=== PATIENT | female | born 1930 | race Caucasian/White ===

== ENCOUNTER 2017-10-05 08:07 | Emergency (ER) | payer MEDICARE, OTHER ==
[2017-10-05] MEDS ORDERED: Acetaminophen/HYDROcodone 325-5 MG Tab PO ONE (08:34)
--- NOTE | 2017-10-05 08:37 | EDM.PDOC ---
ED HPI GENERAL MEDICAL PROBLEM - General Stated Complaint: FELL- HURT RIBS Time Seen by Provider: 10/05/17 08:28 - History of Present Illness INITIAL COMMENTS - FREE TEXT/NARRATIVE: HISTORY AND PHYSICAL: History of present illness: The patient is an 87-year-old female who follows at [facility] with Dr. Sanabira and has a history of hypertension hypercholesterolemia breast cancer with a left mastectomy in remission [id number] diabetes and who presents after having a simple fall in her kitchen on night, 3-1/2 days ago. She has had persistent pain where she impacted the right side of her ribs on a small kitchen stool. She has had no abdominal pain no midline back pain and she did not hit her head or pass out. She has no head neck or midline back pain. She has no extremity complaints but she does say that when she takes a deep breath it is painful in her ribs. She has used [id number] Aleve but the pain is still persistent. She has no flank pain per se and no urinary complaints. She says that she does have a history of gait instability and she has fallen before and she does not think this is new or different. She is not dizzy or lightheaded prior to the fall. She tells me that she just lost her footing and this is happened before. When she fell she did impact her right ribs on the small kitchen stool. Review of systems: As per history of present illness and below otherwise all systems reviewed and negative. Past medical history: As per history of present illness and as reviewed below otherwise noncontributory. Surgical history: As per history of present illness and as reviewed below otherwise noncontributory. Social history: No reported history of drug or alcohol abuse. Family history: As per history of present illness and as reviewed below otherwise noncontributory. Physical exam: Gen.: Well-developed well-nourished thin female who is nontoxic and speaking clearly in the ED and moving easily. Vital signs were noted by me HEENT: Atraumatic, normocephalic, pupils reactive, negative for conjunctival pallor or scleral icterus, mucous membranes moist, throat clear, neck supple, nontender, trachea midline. There are no midline step-offs tenderness defects of the cervical spine Lungs: Clear to auscultation, breath sounds equal bilaterally, chest wall with mild tenderness at right lateral ribs without defects ecchymosis deformity or crepitus. No wheezing or stridor is appreciated Heart: S1S2, regular rate and rhythm no overt murmurs are appreciated but heart sounds are very distant for me Abdomen: Soft, nondistended, nontender. Negative for masses or hepatosplenomegaly. Negative for costovertebral tenderness. Pelvis: Stable nontender. No lateral hip tenderness Genitourinary: Deferred. Rectal: Deferred. Extremities: Atraumatic, negative for cords or calf pain. Neurovascular unremarkable. Full range of motion without defects or deficits Neuro: Awake, alert, oriented. Cranial nerves II through XII unremarkable. Cerebellum unremarkable. Motor and sensory unremarkable throughout. Exam nonfocal. Back: There are no midline step-offs tenderness defects of the thoracic or lumbar spine and no soft tissue trauma is visualized on the back Diagnostics: EKG CBC CMP UA right ribs with chest x-ray Therapeutics: Dickinson incentive spirometer gentle IV fluids Patient and son at bedside are aware of sodium of 126 and x-ray findings of nondisplaced fractures of right ribs 9 through 11. There is no evidence of any lung injury and the patient sustained this injury 3-1/2 days ago and says that the Dickinson is significantly helping. I do not think that she needs to be admitted to the hospital at this point and she would prefer not to be admitted but we will give her an incentive spirometer and teaching with respect to that and after some IV fluids I will discuss this case with her provider Dr. Sanabria for close follow-up of her sodium and care plan and pain management. 1040: I was able to connect with Dr. Sanabria was aware of the patient's presentation of the ED and the testing results. He tells me that she had a sodium level performed in July, approximately 2 months ago, that was normal at 136. He agrees with the care plan and can see the patient in his clinic on Thursday morning at 7:45 AM to be reevaluated for pain control and to have a repeat labs done for her sodium. The patient and son at bedside are also aware of this plan and are agreeable. I stressed to the patient and to the son to return to the ER for any problems whatsoever. Impression: Right rib nondisplaced fractures #9-11 status post fall subacute; hyponatremia stable etiology unclear Definitive disposition and diagnosis as appropriate pending reevaluation and review of above. right rib Pain Score (Numeric/FACES): 5 - Related Data Allergies Allergy/AdvReac Type Severity Reaction Status Date / Time Iodinated Contrast- Oral and Allergy Cannot Verified 12/07/13 15:29 IV Dye Remember [Iodinated Contrast Media - IV Dye] propoxyphene HCl Allergy Cannot Verified 12/07/13 15:29 [From Darvon] Remember Home Meds: Home Meds Bisoprolol/Hydrochlorothiazide [Bisoprolol/HCTZ 5-6.25 MG] 6.25 mg PO DAILY 01/15 [History] Lisinopril 40 mg PO DAILY 10/05/17 [History] Potassium Bicarbonate/Cit Ac [Potassium 25 Meq Tablet Eff] 25 meq PO DAILY 10/05 [History] amLODIPine [Norvasc] 5 mg PO DAILY 10/05/17 [History] atorvaSTATin [Lipitor] 40 mg PO DAILY 10/05/17 [History] metFORMIN [Glucophage] 1 mg PO DAILY 10/05/17 [History] ED ROS GENERAL - Review of Systems Review Of Systems: ROS reveals no pertinent complaints other than HPI. ED EXAM, GENERAL - Physical Exam Exam: See Below (See dictation) Course - Vital Signs Last Recorded V/S: Last Vital Signs Temp 36.9 C 10/05/17 08:43 Pulse 55 L 10/05/17 10:21 Resp 17 10/05/17 10:21 BP 148/64 H 10/05/17 10:21 Pulse Ox 95 10/05/17 10:21 - Orders/Labs/Meds Orders: Active Orders 24 hr Category Date Time Status Communication Order [RC] STAT Care 10/05/17 09:57 Active EKG Documentation Completion [RC] STAT Care 10/05/17 08:34 Active Sodium Chloride 0.9% [Normal Saline] 500 ml Med 10/05/17 09:45 Active IV STAT Sodium Chloride 0.9% [Saline Flush] Med 10/05/17 09:43 Active 10 ml FLUSH ASDIRECTED PRN Sodium Chloride 0.9% [Saline Flush] Med 10/05/17 09:43 Active 2.5 ml FLUSH ASDIRECTED PRN Saline Lock Insert [OM.PC] Stat Oth 10/05/17 09:43 Ordered Medication Orders Sodium Chloride (Normal Saline) 500 mls @ 999 mls/hr IV STAT CRISTIAN Last Admin: 10/05/17 10:27 Dose: 999 mls/hr Sodium Chloride (Saline Flush) 10 ml FLUSH ASDIRECTED PRN PRN Reason: Keep Vein Open Sodium Chloride (Saline Flush) 2.5 ml FLUSH ASDIRECTED PRN PRN Reason: Keep Vein Open Labs: Laboratory Tests 10/05/17 10/05/17 10/05/17 Range/Units 08:58 08:58 10:13 WBC 10.67 (4.0-11.0) K/uL RBC 4.72 (4.30-5.90) M/uL Hgb 14.2 (12.0-16.0) g/dL Hct 41.3 (36.0-46.0) % MCV 87.5 (80.0-98.0) fL MCH 30.1 (27.0-32.0) pg MCHC 34.4 (31.0-37.0) g/dL RDW Std Deviation 39.4 (28.0-62.0) fl RDW Coeff of Tariq 12 (11.0-15.0) % Plt Count 416 H (150-400) K/uL MPV 9.10 (7.40-12.00) fL Neut % (Auto) 71.9 (48.0-80.0) % Lymph % (Auto) 17.4 (16.0-40.0) % [place] % (Auto) 9.5 (0.0-15.0) % Eos % (Auto) 1.0 (0.0-7.0) % Baso % (Auto) 0.2 (0.0-1.5) % Neut # (Auto) 7.7 H (1.4-5.7) K/uL Lymph # (Auto) 1.9 (0.6-2.4) K/uL [place] # (Auto) 1.0 H (0.0-0.8) K/uL Eos # (Auto) 0.1 (0.0-0.7) K/uL Baso # (Auto) 0.0 (0.0-0.1) K/uL Nucleated RBC % 0.0 /100WBC Nucleated RBCs # 0 K/uL Sodium 126 L (136-146) mmol/L Potassium 4.4 (3.5-5.1) mmol/L Chloride 89 L (98-110) mmol/L Carbon Dioxide 26 (21-31) mmol/L BUN 14 (6.0-23.0) mg/dL Creatinine 0.6 (0.6-1.5) mg/dL Est Cr Clr Drug Dosing 45.66 mL/min Estimated GFR (MDRD) > 60.0 ml/min Glucose 154 H (60-110) mg/dL Calcium 10.7 (8.8-10.8) mg/dL Total Bilirubin 0.9 (0.1-1.5) mg/dL AST 18 (5-40) IU/L ALT 19 (8-54) IU/L Alkaline Phosphatase 82 (40-150) Total Protein 7.6 (6.0-8.0) g/dL Albumin 4.5 (3.4-4.8) g/dL Globulin 3.1 (2.0-3.5) g/dL Albumin/Globulin Ratio 1.5 (1.3-2.8) Urine Color YELLOW Urine Appearance CLEAR Urine pH 6.0 (5.0-8.0) Ur Specific [place] 1.015 (1.001-1.035) Urine Protein NEGATIVE (NEGATIVE) mg/dL Urine Glucose (UA) NEGATIVE (NEGATIVE) mg/dL Urine Ketones NEGATIVE (NEGATIVE) mg/dL Urine Occult Blood MODERATE (NEGATIVE) Urine Nitrite NEGATIVE (NEGATIVE) Urine Bilirubin NEGATIVE (NEGATIVE) Urine Urobilinogen 0.2 (<2.0) EU/dL Ur Leukocyte Esterase NEGATIVE (NEGATIVE) Urine RBC 1-3 (0-2/HPF) Urine WBC 0-1 (0-5/HPF) Ur Epithelial Cells RARE (NONE-FEW) Urine Bacteria RARE (NEGATIVE) Urine Mucus LIGHT (NONE-MOD) Meds: Medications Generic Name Dose Route Start Last Admin Trade Name Freq PRN Reason Stop Dose Admin Sodium Chloride 500 mls @ 999 mls/hr 10/05/17 09:45 10/05/17 10:27 Normal Saline IV 999 mls/hr STAT CRISTIAN Administration Sodium Chloride 10 ml 10/05/17 09:43 Saline Flush FLUSH ASDIRECTED PRN Keep Vein Open Sodium Chloride 2.5 ml 10/05/17 09:43 Saline Flush FLUSH ASDIRECTED PRN Keep Vein Open Discontinued Medications Generic Name Dose Route Start Last Admin Trade Name Lupis PRN Reason Stop Dose Admin Hydrocodone Bitart/Acetaminophen 1 tab 10/05/17 08:34 10/05/17 08:53 Dickinson 325-5 Mg PO 10/05/17 08:35 1 tab ONETIME ONE Administration Departure - Departure Time of Disposition: 10:48 Disposition: Home, Self-Care 01 Condition: Good Clinical Impression: Multiple fractures of ribs of right side Qualifiers: Encounter type: initial encounter Fracture type: closed Qualified Code(s): S22.41XA - Multiple fractures of ribs, right side, initial encounter for closed fracture - Discharge Information Referrals: Jose Sanabria MD [Primary Care Provider] - Additional Instructions: The following information is given to patients seen in the emergency department who are being discharged to home. This information is to outline your options for follow-up care. We provide all patients seen in our emergency department with a follow-up referral. The need for follow-up, as well as the timing and circumstances, are variable depending upon the specifics of your emergency department visit. If you don't have a primary care physician on staff, we will provide you with a referral. We always advise you to contact your personal physician following an emergency department visit to inform them of the circumstance of the visit and for follow-up with them and/or the need for any referrals to a consulting specialist. The emergency department will also refer you to a specialist when appropriate. This referral assures that you have the opportunity for followup care with a specialist. All of these measure are taken in an effort to provide you with optimal care, which includes your followup. Under all circumstances we always encourage you to contact your private physician who remains a resource for coordinating your care. When calling for followup care, please make the office aware that this follow-up is from your recent emergency room visit. If for any reason you are refused follow-up, please contact the [facility] emergency department at and ask to speak to the emergency department charge nurse. [address] [place] [address] Please use [id number] Aleve/ibuprofen and add the Dickinson you have been prescribed as needed. Apply ice or heat to area for comfort. Please use your spirometer as shown to keep your lungs open and to prevent pneumonia. Please take an [id number] stool softener such as Colace because the stronger pain medicine may cause you to become constipated. Please keep your appointment on Thursday morning at 745 at [facility] with Dr. Sanabria as we discussed. Return to ER as needed and as discussed - My Orders Last 24 Hours: My Active Orders 10/05/17 08:34 EKG Documentation Completion [RC] STAT 10/05/17 09:43 Sodium Chloride 0.9% [Saline Flush] 10 ml FLUSH ASDIRECTED PRN Sodium Chloride 0.9% [Saline Flush] 2.5 ml FLUSH ASDIRECTED PRN Saline Lock Insert [OM.PC] Stat 10/05/17 09:45 Sodium Chloride 0.9% [Normal Saline] 500 ml IV STAT 10/05/17 09:57 Communication Order [RC] STAT - Assessment/Plan Last 24 Hours: My Active Orders 10/05/17 08:34 EKG Documentation Completion [RC] STAT 10/05/17 09:43 Sodium Chloride 0.9% [Saline Flush] 10 ml FLUSH ASDIRECTED PRN Sodium Chloride 0.9% [Saline Flush] 2.5 ml FLUSH ASDIRECTED PRN Saline Lock Insert [OM.PC] Stat 10/05/17 09:45 Sodium Chloride 0.9% [Normal Saline] 500 ml IV STAT 10/05/17 09:57 Communication Order [RC] STAT
[2017-10-05 09:30] LABS: CHLORIDE,CL 89 mmol/L (98-110)
--- NOTE | 2017-10-05 09:35 | CR ---
EXAMINATION: PA chest and right ribs. HISTORY: Trauma. FINDINGS: The trachea is midline. The cardiomediastinal silhouette is within normal limits. Mild atelectasis wi thin the lung bases. No pneumothorax is a trace right pleural effusion. Nondisplaced rib fractures are noted along the right posterior lateral aspect of the ninth, 10th, and 11th ribs. IMPRESSION: 1. Ninth through 11th right rib fractures, nondisplaced. 2. Trace right pleural effusion. 3. No pneumothorax
[2017-10-05 09:40] LABS: SODIUM,NA 126 mmol/L (136-146)
[2017-10-05] MEDS ORDERED: Sodium Chloride 0.9% 2.5 ML Syringe FLUSH PRN (09:43)
[2017-10-05] MEDS ORDERED: Sodium Chloride 0.9% 10 ML Syringe FLUSH PRN (09:43)
[2017-10-05] MEDS ORDERED: Sodium Chloride 0.9% 500 ML IV SCH (09:45)
== END 2017-10-05 11:33 | disposition home or self-care (01) ==
LOC: MW.ED 08:07
DX: S22.41XA Multiple fractures of ribs, right side, initial encounter for closed fracture (principal); Z91.041 Radiographic dye allergy status; Z79.899 Other long term (current) drug therapy; W18.00XA Striking against unspecified object with subsequent fall, initial encounter; Y92.89 Other specified places as the place of occurrence of the external cause
CPT/HCPCS: 36415; 71101; 80053; 81001; 85025; 93005; 96360; 99284; A9270; J7040

== ENCOUNTER 2017-12-12 13:55 | Emergency (ER) | payer MEDICARE, OTHER ==
--- NOTE | 2017-12-12 15:12 | EDM.PDOC ---
ED HPI GENERAL MEDICAL PROBLEM - General Chief Complaint: Back Pain or Injury Stated Complaint: HEADACHES Time Seen by Provider: 12/12/17 15:11 Source of Information: Reports: Patient - History of Present Illness INITIAL COMMENTS - FREE TEXT/NARRATIVE: HISTORY AND PHYSICAL: History of present illness: [Patient presents by private vehicle with generalized weakness Patient had a fall 2 months prior with lower rib fractures on the right, they have since healed she has had continued weakness since no fever nausea vomiting diarrhea constipation chest pain shortness breath headache dizziness or palpitation no bowel or urine symptoms She does complain of some mild 1-2 out of 10 upper back pain since after moving some boxes across the floor ] Review of systems: As per history of present illness and below otherwise all systems reviewed and negative. Past medical history: As per history of present illness and as reviewed below otherwise noncontributory. Surgical history: As per history of present illness and as reviewed below otherwise noncontributory. Social history: No reported history of drug or alcohol abuse. Family history: As per history of present illness and as reviewed below otherwise noncontributory. Physical exam: HEENT: Atraumatic, normocephalic, pupils reactive, negative for conjunctival pallor or scleral icterus, mucous membranes moist, throat clear, neck supple, nontender, trachea midline. Lungs: Clear to auscultation, breath sounds equal bilaterally, chest nontender. Heart: S1S2, regular, negative for clicks, rubs, or JVD. Abdomen: Soft, nondistended, nontender. Negative for masses or hepatosplenomegaly. Negative for costovertebral tenderness. Pelvis: Stable nontender. Genitourinary: Deferred. Rectal: Deferred. Extremities: Atraumatic, negative for cords or calf pain. Neurovascular unremarkable. Neuro: Awake, alert, oriented. Cranial nerves II through XII unremarkable. Cerebellum unremarkable. Motor and sensory unremarkable throughout. Exam nonfocal. Musculoskeletal paraspinous muscle spasm noted thoracic paraspinous muscles right shoulder girdle discomfort reproduced with palpation and movement of the right arm Diagnostics: [ CBC CMP UA blood cultures Chest 1 view EKG ] Therapeutics: [ azithromycin 500 mg by mouth now and daily 6 days 1 g Rocephin IM ] Patient offered admission she refuses as her daughter will be here she states she'll return if symptoms persist or worsen Impression: [ right lower lobe infiltrate Leukocytosis generalized weakness ] Definitive disposition and diagnosis as appropriate pending reevaluation and review of above. Upper Back Pain Score (Numeric/FACES): 8 - Related Data Allergies Allergy/AdvReac Type Severity Reaction Status Date / Time Iodinated Contrast- Oral and Allergy Cannot Verified 12/07/13 15:29 IV Dye Remember [Iodinated Contrast Media - IV Dye] propoxyphene HCl Allergy Cannot Verified 12/07/13 15:29 [From [facility]] Remember Home Meds: Home Meds Bisoprolol/Hydrochlorothiazide [Bisoprolol/HCTZ 5-6.25 MG] 6.25 mg PO DAILY 01/15 [History] Lisinopril 40 mg PO DAILY 10/05/17 [History] Potassium Bicarbonate/Cit Ac [Potassium 25 Meq Tablet Eff] 25 meq PO DAILY 10/05 [History] atorvaSTATin [Lipitor] 40 mg PO DAILY 10/05/17 [History] metFORMIN [Glucophage] 1 tab PO DAILY 10/05/17 [History] Anastrozole [Arimidex] 1 tab PO DAILY 12/12/17 [History] Bisoprolol/Hydrochlorothiazide [Bisoprolol/HCTZ 5-6.25 MG] 1 tab PO DAILY [History] Past Medical History HEENT History: Reports: None Cardiovascular History: Reports: High Cholesterol, Hypertension Respiratory History: Reports: None Gastrointestinal History: Reports: Other (See Below) Other Gastrointestinal History: colon cancer Genitourinary History: Reports: None [employer] History: Reports: None Musculoskeletal History: Reports: None Neurological History: Reports: None Psychiatric History: Reports: None Endocrine/Metabolic History: Reports: None Hematologic History: Reports: None Immunologic History: Reports: None Oncologic (Cancer) History: Reports: Breast, Colon Dermatologic History: Reports: None - Infectious Disease History Infectious Disease History: Reports: Chicken Pox, Measles, Mumps, Rubella - Past Surgical History Head Surgeries/Procedures: Reports: None GI Surgical History: Reports: Cholecystectomy Female Surgical History: Reports: Mastectomy Other Female Surgeries/Procedures: breast cancer left with mastectomy Social & Family History - Family History Family Medical History: Noncontributory - Tobacco Use Smoking Status *Q: Never Smoker Second Hand Smoke Exposure: No - Caffeine Use Caffeine Use: Reports: Coffee - Recreational Drug Use Recreational Drug Use: No ED ROS GENERAL - Review of Systems Review Of Systems: ROS reveals no pertinent complaints other than HPI. ED EXAM, GENERAL - Physical Exam Exam: See Below Course - Vital Signs Last Recorded V/S: Last Vital Signs Temp 98.2 F 12/12/17 14:54 Pulse 72 12/12/17 14:54 Resp 18 12/12/17 14:54 BP 176/95 H 12/12/17 14:54 Pulse Ox 95 12/12/17 14:54 - Orders/Labs/Meds Orders: Active Orders 24 hr Category Date Time Status EKG Documentation Completion [RC] STAT Care 12/12/17 15:10 Active Chest 1V Frontal [CR] Stat Exams 12/12/17 15:10 Taken CULTURE URINE [RM] Stat Lab 12/12/17 15:31 Ordered INFLUENZA A+B AG SCREEN [RM] Stat Lab 12/12/17 16:00 Ordered UA W/MICROSCOPIC [URIN] Stat Lab 12/12/17 15:31 Ordered Labs: Laboratory Tests 12/12/17 12/12/17 12/12/17 Range/Units 15:26 15:26 15:26 WBC 13.73 H (4.0-11.0) K/uL RBC 4.83 (4.30-5.90) M/uL Hgb 14.5 (12.0-16.0) g/dL Hct 41.9 (36.0-46.0) % MCV 86.7 (80.0-98.0) fL MCH 30.0 (27.0-32.0) pg MCHC 34.6 (31.0-37.0) g/dL RDW Std Deviation 39.2 (28.0-62.0) fl RDW Coeff of Tariq 12 (11.0-15.0) % Plt Count 489 H (150-400) K/uL MPV 9.00 (7.40-12.00) fL Neut % (Auto) 68.7 (48.0-80.0) % Lymph % (Auto) 22.4 (16.0-40.0) % [place] % (Auto) 8.1 (0.0-15.0) % Eos % (Auto) 0.6 (0.0-7.0) % Baso % (Auto) 0.2 (0.0-1.5) % Neut # (Auto) 9.4 H (1.4-5.7) K/uL Lymph # (Auto) 3.1 H (0.6-2.4) K/uL [place] # (Auto) 1.1 H (0.0-0.8) K/uL Eos # (Auto) 0.1 (0.0-0.7) K/uL Baso # (Auto) 0.0 (0.0-0.1) K/uL Nucleated RBC % 0.0 /100WBC Nucleated RBCs # 0 K/uL INR 0.98 Sodium 132 L (136-145) mmol/L Potassium 4.2 (3.5-5.1) mmol/L Chloride 96 L (98-107) mmol/L Carbon Dioxide 24.4 (21.0-32.0) mmol/L BUN 15 (7.0-18.0) mg/dL Creatinine 0.5 L (0.6-1.0) mg/dL Est Cr Clr Drug Dosing 54.79 mL/min Estimated GFR (MDRD) > 60.0 ml/min Glucose 129 H (74-106) mg/dL Calcium 9.8 (8.5-10.1) mg/dL Total Bilirubin 0.4 (0.2-1.0) mg/dL AST 20 (15-37) IU/L ALT 24 (14-63) IU/L Alkaline Phosphatase 109 (46-116) U/L Troponin I < 0.050 (0.000-0.056) ng/mL B-Natriuretic Peptide (<100) PG/ML Total Protein 7.9 (6.4-8.2) g/dL Albumin 4.1 (3.4-5.0) g/dL Globulin 3.8 H (2.0-3.5) g/dL Albumin/Globulin Ratio 1.1 L (1.3-2.8) Urine Color Urine Appearance Urine pH (5.0-8.0) Ur Specific Cache (1.001-1.035) Urine Protein (NEGATIVE) mg/dL Urine Glucose (UA) (NEGATIVE) mg/dL Urine Ketones (NEGATIVE) mg/dL Urine Occult Blood (NEGATIVE) Urine Nitrite (NEGATIVE) Urine Bilirubin (NEGATIVE) Urine Urobilinogen (<2.0) EU/dL Ur Leukocyte Esterase (NEGATIVE) Urine RBC (0-2/HPF) Urine WBC (0-5/HPF) Ur Epithelial Cells (NONE-FEW) Urine Bacteria (NEGATIVE) 12/12/17 12/12/17 Range/Units 15:26 15:31 WBC (4.0-11.0) K/uL RBC (4.30-5.90) M/uL Hgb (12.0-16.0) g/dL Hct (36.0-46.0) % MCV (80.0-98.0) fL MCH (27.0-32.0) pg MCHC (31.0-37.0) g/dL RDW Std Deviation (28.0-62.0) fl RDW Coeff of Tariq (11.0-15.0) % Plt Count (150-400) K/uL MPV (7.40-12.00) fL Neut % (Auto) (48.0-80.0) % Lymph % (Auto) (16.0-40.0) % [place] % (Auto) (0.0-15.0) % Eos % (Auto) (0.0-7.0) % Baso % (Auto) (0.0-1.5) % Neut # (Auto) (1.4-5.7) K/uL Lymph # (Auto) (0.6-2.4) K/uL [place] # (Auto) (0.0-0.8) K/uL Eos # (Auto) (0.0-0.7) K/uL Baso # (Auto) (0.0-0.1) K/uL Nucleated RBC % /100WBC Nucleated RBCs # K/uL INR Sodium (136-145) mmol/L Potassium (3.5-5.1) mmol/L Chloride (98-107) mmol/L Carbon Dioxide (21.0-32.0) mmol/L BUN (7.0-18.0) mg/dL Creatinine (0.6-1.0) mg/dL Est Cr Clr Drug Dosing mL/min Estimated GFR (MDRD) ml/min Glucose (74-106) mg/dL Calcium (8.5-10.1) mg/dL Total Bilirubin (0.2-1.0) mg/dL AST (15-37) IU/L ALT (14-63) IU/L Alkaline Phosphatase (46-116) U/L Troponin I (0.000-0.056) ng/mL B-Natriuretic Peptide 15 (<100) PG/ML Total Protein (6.4-8.2) g/dL Albumin (3.4-5.0) g/dL Globulin (2.0-3.5) g/dL Albumin/Globulin Ratio (1.3-2.8) Urine Color YELLOW Urine Appearance CLEAR Urine pH 6.0 (5.0-8.0) Ur Specific [place] 1.010 (1.001-1.035) Urine Protein NEGATIVE (NEGATIVE) mg/dL Urine Glucose (UA) NEGATIVE (NEGATIVE) mg/dL Urine Ketones TRACE H (NEGATIVE) mg/dL Urine Occult Blood NEGATIVE (NEGATIVE) Urine Nitrite NEGATIVE (NEGATIVE) Urine Bilirubin NEGATIVE (NEGATIVE) Urine Urobilinogen 0.2 (<2.0) EU/dL Ur Leukocyte Esterase NEGATIVE (NEGATIVE) Urine RBC 0-2 (0-2/HPF) Urine WBC 0-1 (0-5/HPF) Ur Epithelial Cells OCCASIONAL (NONE-FEW) Urine Bacteria RARE (NEGATIVE) Departure - Departure Time of Disposition: 16:34 Disposition: Home, Self-Care 01 Condition: Good Clinical Impression: Pulmonary infiltrate on chest x-ray - Discharge Information Referrals: Jose Sanabria MD [Primary Care Provider] - Forms: ED Department Discharge Additional Instructions: Medication as prescribed Return if symptoms persist or worsen Follow-up with primary care in 2 weeks sooner as needed The following information is given to patients seen in the emergency department who are being discharged to home. This information is to outline your options for follow-up care. We provide all patients seen in our emergency department with a follow-up referral. The need for follow-up, as well as the timing and circumstances, are variable depending upon the specifics of your emergency department visit. If you don't have a primary care physician on staff, we will provide you with a referral. We always advise you to contact your personal physician following an emergency department visit to inform them of the circumstance of the visit and for follow-up with them and/or the need for any referrals to a consulting specialist. The emergency department will also refer you to a specialist when appropriate. This referral assures that you have the opportunity for follow-up care with a specialist. All of these measure are taken in an effort to provide you with optimal care, which includes your follow-up. Under all circumstances we always encourage you to contact your private physician who remains a resource for coordinating your care. When calling for follow-up care, please make the office aware that this follow-up is from your recent emergency room visit. If for any reason you are refused follow-up, please contact the [facility] emergency department at and asked to speak to the emergency department charge nurse. - My Orders Last 24 Hours: My Active Orders 12/12/17 15:10 EKG Documentation Completion [RC] STAT Chest 1V Frontal [CR] Stat 12/12/17 15:31 CULTURE URINE [RM] Stat UA W/MICROSCOPIC [URIN] Stat 12/12/17 16:00 INFLUENZA A+B AG SCREEN [RM] Stat - Assessment/Plan Last 24 Hours: My Active Orders 12/12/17 15:10 EKG Documentation Completion [RC] STAT Chest 1V Frontal [CR] Stat 12/12/17 15:31 CULTURE URINE [RM] Stat UA W/MICROSCOPIC [URIN] Stat 12/12/17 16:00 INFLUENZA A+B AG SCREEN [RM] Stat
[2017-12-12 15:48] LABS: CHLORIDE,CL 96 mmol/L (98-107); SODIUM,NA 132 mmol/L (136-145)
[2017-12-12] MEDS ORDERED: Azithromycin 250 MG Tab PO STA (16:35)
[2017-12-12] MEDS ORDERED: cefTRIAXone 1,000 MG in Lidocaine 1% 4 ML IM ONE (16:35)
--- NOTE | 2017-12-14 10:29 | CR ---
EXAM DATE: 12/12/17 PATIENT'S AGE: 87 Patient: KIARA COHEN Facility: [place], [place] Site . Site : [id number] Study: XRay Chest [id number] 4:03:53 PM Ordering Physician: Amena Silver Final Report: CHEST 1 VIEW AP INDICATION: Weakness. IMPRESSION: Normal heart size and vascular pattern. Lungs are clear of focal opacities. Surgical clips along the left chest wall left axilla. Minimal linear scarring in the lung bases. 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 Postoperative surgical ankle in the right shoulder. No pneumothorax or pleural abnormality. Dictated by Farooq Araujo MD @ Dec 12 2017 4:06PM (Electronic Signature) Report Signed by Proxy. CHRISTINE
== END 2017-12-12 17:05 | disposition home or self-care (01) ==
LOC: MW.ED 13:55
DX: R91.8 Other nonspecific abnormal finding of lung field (principal); E78.00 Pure hypercholesterolemia, unspecified; I10 Essential (primary) hypertension; R53.1 Weakness; D72.829 Elevated white blood cell count, unspecified; Z79.899 Other long term (current) drug therapy; Z79.84 Long term (current) use of oral hypoglycemic drugs
CPT/HCPCS: 36415; 71045; 80053; 81001; 83880; 84484; 85025; 85610; 87086; 87804; 93005; 96372; 99284; A9270; J0696; 99283